=== PATIENT | female | born 1970 | race Caucasian/White ===

== ENCOUNTER 2018-08-07 11:57 | Day surgery (SDC) | payer OTHER ==
[~2018-08-07 11:57] MED LIST: Acetaminophen TAB* 325 MG PO ONE; Buffered Lidocaine 0.9% SYRIN* 5 ML/SYR SYRINGE INTRADERM ONE; Lactated Ringers 1000 ML Bag* 1,000 ML IV SCH
[2018-08-07] MEDS ORDERED: Acetaminophen TAB* 325 MG ONE (13:06)
[2018-08-07] MEDS ORDERED: fentaNYL* 50 MCG/ML 2 ML VIAL (100 MCG VIAL) ONE ×3 (13:36→15:50)
[2018-08-07] MEDS ORDERED: Midazolam* 1 MG/ML 2 ML VIAL (2 MG) ONE (13:37)
[2018-08-07] MEDS ORDERED: Oxymetazoline 0.05% NASAL SPR* 15 ML BTL ONE (14:34)
[2018-08-07] MEDS ORDERED: Lidocaine 2% EPI 1:200000 MPF*10-20 ML VIAL ONE (14:34)
[2018-08-07] MEDS ORDERED: Famotidine IV* 10 MG/ML 2 ML (20 mg) ONE (14:37)
[2018-08-07] MEDS ORDERED: Propofol* 10 MG/ML 20 ML BTL ONE (14:56)
[2018-08-07] MEDS ORDERED: Dexamethasone IV* 4 MG/ML 1 ML (4 MG) ONE (14:56)
[2018-08-07] MEDS ORDERED: DiMENhydriNATE IV* 50 MG/ML VIAL ONE (14:56)
[2018-08-07] MEDS ORDERED: Lidocaine 2% PF * 5 ML VIAL ONE (15:07)
[2018-08-07] MEDS ORDERED: Triamcinolone Acetonide* 40 MG/ML 1 ML VIAL ONE (15:21)
[2018-08-07] MEDS ORDERED: Ketorolac INJ* 30 MG/ML 1 ML VIAL ONE (15:22)
[2018-08-07] MEDS ORDERED: Gelfoam 12-7 ADSORBABL SPONGE* 1 EA SPONGE ONE (15:23)
[2018-08-07] MEDS ORDERED: Gelatin ADSORBABLE (OPHTH)* OPHTH.FILM ONE (15:23)
[2018-08-07] MEDS ORDERED: Naloxone* 0.4 MG/ML 1 ML VIAL IV PRN (15:54)
[2018-08-07] MEDS ORDERED: DiMENhydriNATE IV* 50 MG/ML VIAL IV PUSH PRN (15:54)
[2018-08-07] MEDS ORDERED: Scopolamine 1.5 mg* PATCH TRANSDERM PRN (15:54)
[2018-08-07] MEDS ORDERED: HYDROcodone/ACETAMIN 5-325 MG* 1 TAB PO PRN ×2 (15:54)
[2018-08-07] MEDS ORDERED: fentaNYL* 50 MCG/ML 2 ML VIAL (100 MCG VIAL) IV PRN (15:54)
[2018-08-07] MEDS ORDERED: diPHENhydraMINE IV* 50 MG/ML 1 ml VIAL (BENADRYL) IV PRN (15:54)
[2018-08-07] MEDS ORDERED: Levalbuterol 0.63MG/3ML NEB* UNIT OF USE INH PRN (15:54)
[2018-08-07] MEDS ORDERED: PROCHLORPERAZINE INJ 5 MG/ML 2 ML VIAL IV PRN (15:54)
[2018-08-07 17:16] VITALS: BP 122/84
--- NOTE | 2018-08-07 20:54 | OP ---
DATE OF OPERATION: 08/07/18 - SDS DATE OF : 70 SURGEON: Dr. Terry. PRE-OP DIAGNOSES: Chronic facial pain, chronic sinusitis, atelectatic left maxillary sinus, and a deviated nasal septum with large spur. POST-OP DIAGNOSES: Chronic facial pain, chronic sinusitis, atelectatic left maxillary sinus, and a deviated nasal septum with large spur. OPERATIVE PROCEDURE: Septoplasty and left maxillary antrostomy. BRIEF HISTORY: This is a 47-year-old female with longstanding history of left- sided facial pain. CT showed a large septal spur with a left maxillary antrum, which was atelectatic with adhesive uncinate process. DESCRIPTION OF PROCEDURE: The patient was taken to the operating room. General anesthetic was given, the patient was intubated with LMA. Nose was decongested with Afrin placed pledgets. 2% lidocaine with epinephrine was then infiltrated into the septum and into the uncinate region and middle turbinate. Uncinectomy was carried using a backbiter. Subsequently, microshaver was used and then the antrostomy was enlarged. The antrum was examined and copiously irrigated. We then turned our attention to septal wall. Small incision was made and a mucosal flap was elevated. Large septal spur was then resected out of bony ethmoidal complex. The mucosa was then secured with rolled up Gelfilm and Gelfoam, which was soaked with Kenalog. The patient was then awakened, sent to recovery room in stable condition. The instruments and sponge counts were correct. Blood loss was minimal. [id number]/[facility] #: [id number] [facility] CAMPUSSeferino
[2018-08-10] MEDS ORDERED: Scopolamine PATCH Remove* 1 NOTE MISC PATCH OFF ONE (15:54)
== END 2018-08-07 17:18 | disposition home or self-care (01) ==
LOC: OR 11:57
PROVIDERS: ATTEND Otolaryngology
DX: J34.2 Deviated nasal septum (principal); J32.0 Chronic maxillary sinusitis; J45.909 Unspecified asthma, uncomplicated; A69.20 Lyme disease, unspecified
CPT/HCPCS: 81025; A9270-GY; J1100; J1240; J1885; J2250; J2704; J3010; J3301